=== PATIENT | female | born 1975 | race Caucasian/White ===

== ENCOUNTER 2024-01-09 08:17 | Outpatient (AMB) | payer OTHER, SELFPAY ==
--- NOTE | 2024-01-09 08:27 | A.OFFPC_ITS ---
Vital Signs 01/09/24 08:35 Height 5 ft 5.35 in Weight 126 lb 4 oz BMI 20.8 BP 120/75 Blood Pressure Location Rt brachial Position Sitting Respiration 14 Pulse 72 Pulse Source Pulse Oximeter Temp 98.1 F Temp Source Temporal Artery Scan Pulse Oximetry (%) 100 Oxygen Delivery Method Room Air Intake Visit Reasons: Brand Marketing Manager, thyroid issues Intake Note: New patient visit. Spot on left ring finger. Order Administrator Required: No Allergies amoxicillin [From Augmentin] Allergy (Severe, Verified 01/09/24 08:29) Vomiting clavulanic acid [From Augmentin] Allergy (Severe, Verified 01/09/24 08:29) Vomiting gluten Allergy (Severe, Verified 01/09/24 08:30) severe stomach pain Medication List - Last Reconciled 01/09/24 by Natasha Yoon MD azelastine intranasal cetirizine-pseudoephedrine 5-120 mg ER (Zyrtec-D) 1 tab PO Q12H clobetasol 0.05% 1 appl topical DAILY estradiol 1 patch transdermal 2XW levothyroxine 75 mcg PO DAILY progesterone micronized 100 mg PO BEDTIME zolmitriptan 2.5 mg PO BID Tobacco use date assessed: 01/09/24 Dental Screening Dental Screen Date: 01/09/24 Did you have a dental visit in the last 12 months?: Yes Did you have a dental problem in the last 6 months where you did not have access to dental care?: No Was dental information given to patient?: Patient has dentist HPI HPI Comments History of Present Illness Details This is a 48 year old female with a past medical history of hip pain, OA, hypothyroid, migraine, allergies, h/o lyme disease presenting to [facility]. MSK: Low back pain, b/l hip pain. Muscle tightness, cramping. Has had autoimmune, rheumatologic labs. Normal inflammatory markers. CRYSTAL (+) low titers. Testing for SLE negative. Gluten intolerance. Was no to low gluten prior to colonoscopy. Follows with Dr Whalen. Endocrine: On levothyroxine 75mcg daily Neurology: On zomig prn. TD: 2021 Mammo 06/2023 PFSH Family History (Updated 01/09/24 @ 09:25 by Marcela Rushing CMA) Mother HTN (hypertension) Hypercholesteremia Cardiovascular disease Father HTN (hypertension) Hypercholesteremia Cardiovascular disease Maternal Grandmother HTN (hypertension) Hypercholesteremia Cardiovascular disease Paternal Grandmother HTN (hypertension) Hypercholesteremia Cardiovascular disease Paternal Grandfather HTN (hypertension) Hypercholesteremia Cardiovascular disease Breast cancer Maternal Grandfather Hypercholesteremia Social History Housing: House Patient Tobacco Use Status: Never used Tobacco Tobacco use type: Cigarette e-Cigarette/Vaping Use: Never Used Second Hand Smoke Exposure: No service: No Current occupational status: employed 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 1. Little interest or pleasure in doing things: not at all 2. Feeling down, depressed, or hopeless: not at all 3. Trouble falling or staying asleep, or sleeping too much: more than half the days 4. Feeling tired or having little energy: several days 5. Poor appetite or overeating: not at all 6. Feeling bad about yourself - or that you are a failure or have let yourself or your family down: not at all 7. Trouble concentrating on things, such as reading the newspaper or watching television: not at all 8. Moving or speaking so slowly that other people could have noticed. Or the opposite - being so fidgety or restless that you have been moving around a lot more than usual: not at all 9. Thoughts that you would be better off or of hurting yourself in some way: not at all Total score: 3 Depression Screening Interpretation: Positive Depression Screening Follow-up: Existing condition Depression Screening Done: Yes 27180 - PHQ-9 Billing: Yes Source: Developed by Drs. Brian Esquivel, Moraima Gardner, Stephan Caraballo and colleagues, with an educational dacia from [employer] ([employer]). Thrive Questionnaire Date Thrive assessed: 01/09/24 I am a: Patient What is your living situation today?: I have a steady place to live Within the past 12 months, did the food you bought not last and you didn't have the money to get more?: Never true Within the past 12 months, did you worry whether your food would run out before you got money to buy more?: Never true Do you have trouble paying for medicines?: No Do you have trouble getting transportation to medical appointments?: No Do you have trouble paying your heating and electricity bill?: No Do you have trouble taking care of your child, family member or friend?: No Do you have trouble with day-to-day activities such as bathing, preparing meals, shopping, managing finances, etc.?: No Are you currently unemployed and looking for a job?: No Are you interested in more education?: No Please select the resources that you would like help with: None Currently or been in a relationship where the following occur: no concerns reported THRIVE Score: 0 AUDIT C Alcohol Use Questionnaire (AUDIT-C) 1. How often do you have a drink containing alcohol?: 2-3 times a week 2. How many drinks containing alcohol do you have on a typical day when you are drinking?: 1 or 2 3. How often do you have six or more drinks on one occasion?: Never Total Score: 3 JOSHUA-7 AMB Questionnaire JOSHUA-7 Date JOSHUA - 7 assessed: 01/09/24 Feeling nervous, anxious, or on edge: 0 = Not at all Not being able to stop or control worryin = Not at all Worrying too much about different things: 0 = Not at all Trouble relaxin = Not at all Being so restless that it is hard to sit still: 0 = Not at all Becoming easily annoyed or irritable: 0 = Not at all Feeling afraid as if something awful might happen: 0 = Not at all Total JOSHUA-7 score (0-4 normal; 5-9 mild; 10-14 moderate; 15-21 severe): 0 Source: Developed by Drs. Brian Esquivel, Moraima Gardner, Stephan Caraballo and colleagues, with an educational dacia from [employer] ([employer]). JOSHUA-7 Assessment Billing JOSHUA-7 Assessment Tool: JOSHUA-7 Assessment 76089 Review of Systems Const Details: see HPI Physical exam (Primary Care) Vital Signs: Last Vital Signs Temp 98.1 F 01/09/24 08:35 Pulse 72 01/09/24 08:35 Resp 14 01/09/24 08:35 BP 120/75 01/09/24 08:35 Pulse Ox 100 01/09/24 08:35 Oxygen Delivery Method Room Air 01/09/24 08:35 BMI result Body Mass Index 20.8 Tobacco/Smoking Status: Tobacco use Status Tobacco use date assessed 01/09/24 01/09/24 08:38 Patient Tobacco Use Status Never used Tobacco 01/09/24 08:38 Tobacco use type Cigarette 01/09/24 08:38 e-Cigarette/Vaping Use Never Used 01/09/24 08:38 PHQ-9: PHQ-9 Score PHQ-9: Total score 3 01/09/24 09:26 Depression Screening Interpretation: Positive Depression Screening Follow-up: Existing condition Thrive Assessment: Date of Thrive Assessment Date Thrive assessed 01/09/24 01/09/24 09:26 Currently or been in a relationship where the following occur: no concerns reported Const Other: PHYSICAL EXAM: GENERAL: Alert and oriented x 3. NAD EYES: EOMI. Anicteric. HENT: Moist mucous membranes. No scleral icterus. No cervical lymphadenopathy. LUNGS: Clear to auscultation bilaterally. CARDIOVASCULAR: Regular rate and rhythm. ABDOMEN: Soft, non-tender +bs EXTREMITIES: No edema. Non-tender. SKIN: No rashes or lesions. Warm. NEUROLOGIC: No focal neurological deficits. PSYCHIATRIC: Cooperative. Appropriate mood and affect Assessment and Plan Assessment & Plan (1) Polyarthralgia: Code(s): M25.50 - Pain in unspecified joint Plan: Check MCTD. Check CK and lactic acid. Consider fibromyalgia, neuropathic treatment ie cymbalta (2) Polymyositis: Code(s): M33.20 - Polymyositis, organ involvement unspecified (3) Polyarthralgia: Code(s): M25.50 - Pain in unspecified joint (4) Gluten intolerance: Code(s): K90.41 - Non-celiac gluten sensitivity (5) Migraine: Code(s): G43.909 - Migraine, unspecified, not intractable, without status migrainosus Qualifiers: Migraine type: migraine (< 15 days per month) without aura Status migrainosus presence: without status migrainosus Intractability: not intractable Qualified Code(s): G43.009 - Migraine without aura, not intractable, without status migrainosus Orders: Orders Lactic Acid Today M25.50 - Pain in unspecified joint, M33.20 - Polymyositis, organ involvement unspecified Other Ref Test - Misc Today M25.50 - Pain in unspecified joint, M33.20 - Polymyositis, organ involvement unspecified Creatine Kinase Total Today M25.50 - Pain in unspecified joint, M33.20 - Polymyositis, organ involvement unspecified Coding Level of Care Code Tele New Pt Level 5 (32069) Complex EM visit Add On G2211 Diagnoses Polyarthralgia M25.50 Polymyositis M33.20 Gluten intolerance K90.41 Migraine without aura and without status migrainosus, not intractable G43.009 Migraine type: migraine (< 15 days per month) without aura Status migrainosus presence: without status migrainosus Intractability: not intractable Additional Codes JOSHUA-7 Assessment Billing - JOSHUA-7 Assessment Tool: JOSHUA-7 Assessment 93652 ([id number])
[2024-01-09 08:35] VITALS: BP 120/75; PULSE 72; RESP 14; TEMP 36.7; O2SAT 100; BMI 20.8
== END 2024-01-09 09:29 | disposition home or self-care (01) ==
PROVIDERS: PCP Internal Medicine; Visit Provider Internal Medicine
DX: M25.50 Pain in unspecified joint (principal); M33.20 Polymyositis, organ involvement unspecified; K90.41 Non-celiac gluten sensitivity; G43.009 Migraine without aura, not intractable, without status migrainosus
CPT/HCPCS: 99204; G2211

== ENCOUNTER 2024-01-09 09:29 | Outpatient (REF) | payer OTHER, SELFPAY | END 2024-01-09 09:30 | disposition home or self-care (01) | LOC: HO.WFDLDS 09:29 | PROVIDERS: Visit Provider Internal Medicine | DX: Z13.89 Encounter for screening for other disorder (principal) ==

== ENCOUNTER 2024-02-16 10:59 | Outpatient (AMB) | payer OTHER, SELFPAY ==
--- NOTE | 2024-02-16 11:14 | A.OFFPC_ITS ---
Vital Signs 02/16/24 11:17 Height 5 ft 3.35 in Weight 127 lb BMI 22.2 BP 104/70 Blood Pressure Location Rt brachial Position Sitting Pulse 62 Pulse Source Pulse Oximeter Pulse Oximetry (%) 99 Oxygen Delivery Method Room Air Intake Visit Reasons: mouth patch Intake Note: Patch on gums. Looking for a referral. Allergies amoxicillin [From Augmentin] Allergy (Severe, Verified 02/16/24 11:17) Vomiting clavulanic acid [From Augmentin] Allergy (Severe, Verified 02/16/24 11:17) Vomiting gluten Allergy (Severe, Verified 02/16/24 11:17) severe stomach pain Tobacco use date assessed: 01/09/24 Dental Screening Dental Screen Date: 01/09/24 HPI HPI Comments History of Present Illness Details This is a 48 year old female with a past medical history of hip pain, OA, hypothyroid, migraine, allergies, h/o lyme disease presenting for follow up Seen recently by her dentist. Dentist told her that a plaque like lesion medial to upper left molar had increased in size and referred her to oral surgery. Her insurance does not cover this and she wants to know what she should do. MSK: Low back pain, b/l hip pain. Muscle tightness, cramping. Has had autoimmune, rheumatologic labs. Normal inflammatory markers. CRYSTAL (+) low titers. Testing for SLE negative. Gluten intolerance. Was no to low gluten prior to colonoscopy. Follows with Dr Whalen. Endocrine: On levothyroxine 75mcg daily Neurology: On zomig prn. TD: 2021 Mammo 06/2023 ROS see HPI PHYSICAL EXAM: GENERAL: Alert and oriented x 3. NAD EYES: EOMI. Anicteric. HENT: There is a 2-3mm white plaque medial upper left molar. there are similar but less pronounced changes along the medial upper back teeth bilaterally. there is slight whitish coating of the tongue LUNGS: Clear to auscultation bilaterally. CARDIOVASCULAR: Regular rate and rhythm. No murmur. No JVD. ABDOMEN: Soft, non-tender +bs EXTREMITIES: No edema. Non-tender. SKIN: No rashes or lesions. Warm. NEUROLOGIC: No focal neurological deficits. CN II-XII grossly intact PSYCHIATRIC: Cooperative. Appropriate mood and affect [facility] Family History (Updated 01/09/24 @ 09:25 by Marcela Rushing CMA) Mother HTN (hypertension) Hypercholesteremia Cardiovascular disease Father HTN (hypertension) Hypercholesteremia Cardiovascular disease Maternal Grandmother HTN (hypertension) Hypercholesteremia Cardiovascular disease Paternal Grandmother HTN (hypertension) Hypercholesteremia Cardiovascular disease Paternal Grandfather HTN (hypertension) Hypercholesteremia Cardiovascular disease Breast cancer Maternal Grandfather Hypercholesteremia Social History Housing: House Patient Tobacco Use Status: Never used Tobacco Tobacco use type: Cigarette e-Cigarette/Vaping Use: Never Used Second Hand Smoke Exposure: No service: No Current occupational status: employed 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 Brian Esquivel, Moraima Gardner, Stephan Caraballo and colleagues, with an educational dacia from [employer]. Physical exam (Primary Care) Vital Signs: Last Vital Signs Pulse 62 02/16/24 11:17 BP 104/70 02/16/24 11:17 Pulse Ox 99 02/16/24 11:17 Oxygen Delivery Method Room Air 02/16/24 11:17 BMI result Body Mass Index 22.2 Tobacco/Smoking Status: Tobacco use Status Tobacco use date assessed 01/09/24 02/16/24 11:15 Patient Tobacco Use Status Never used Tobacco 02/16/24 11:15 Tobacco use type Cigarette 02/16/24 11:15 e-Cigarette/Vaping Use Never Used 02/16/24 11:15 Thrive Assessment: Date of Thrive Assessment Date Thrive assessed 01/09/24 02/16/24 11:15 Assessment and Plan Assessment & Plan (1) Oral lesion: Comment: The lesion does not appear suspicious that said the only way to know would be to biopsy. Given the changes on the tongue this may be fungal. She will trial an oral course of antifungal. If no or not complete resolution she could have her managing director atlas evaluate prior to thinking about oral consult. Code(s): K13.70 - Unspecified lesions of oral mucosa (2) Polymyositis: Code(s): M33.20 - Polymyositis, organ involvement unspecified (3) Polyarthralgia: Code(s): M25.50 - Pain in unspecified joint Medications: New fluconazole 150 mg PO DAILY 7 tabs 0RF 7 days Coding Level of Care Code Est Pt Level 4 (81070) Diagnoses Oral lesion K13.70 Polymyositis M33.20 Polyarthralgia M25.50
[2024-02-16 11:17] VITALS: BP 104/70; PULSE 62; O2SAT 99; BMI 22.2
== END 2024-02-16 11:55 | disposition home or self-care (01) ==
PROVIDERS: PCP Internal Medicine; Visit Provider Internal Medicine
DX: K13.70 Unspecified lesions of oral mucosa (principal); M33.20 Polymyositis, organ involvement unspecified; M25.50 Pain in unspecified joint
CPT/HCPCS: 99214

== ENCOUNTER 2024-09-23 10:40 | Outpatient (AMB) | payer OTHER, SELFPAY ==
--- NOTE | 2024-09-23 10:50 | MHC.PC.OV ---
Vital Signs 09/23/24 10:57 Height 5 ft 3.35 in Weight 130 lb BMI 22.8 BP 98/70 Blood Pressure Location Lt brachial Position Sitting Pulse 84 Pulse Source Pulse Oximeter Pulse Oximetry (%) 94 Oxygen Delivery Method Room Air Intake Visit Reasons: PE Intake Note: Physical. Needs refill on levothyroxine, clobetasol, zolmintriptan, azelpstine. Requesting lab work for thyroid. Endocrinology is going to discharge since thyroid is stable. Automation Clerk Required: No Allergies clavulanic acid [From Augmentin] Allergy (Severe, Verified 09/23/24 10:50) Vomiting gluten Allergy (Severe, Verified 09/23/24 10:50) severe stomach pain Tobacco use date assessed: 01/09/24 Dental Screening Dental Screen Date: 01/09/24 HPI HPI Comments History of Present Illness Details This is a 49 year old female with a past medical history of hip pain, OA, hypothyroid, migraine, allergies, h/o lyme disease presenting for physical exam Recent dental work-on amoxicillin. plaque like lesion medial to upper left molar was biopsied and benign MSK: Low back pain, b/l hip pain. Muscle tightness, cramping. Has had autoimmune, rheumatologic labs. Normal inflammatory markers. CRYSTAL (+) low titers. Testing for SLE negative. Gluten intolerance. Was no to low gluten prior to colonoscopy. Follows with Dr Whalen. Endocrine: On levothyroxine 75mcg daily. She was following with endocrinology but now transferring to pcp Neurology: On zomig prn. TD: 2021 Mammo 08/2024 Colonoscopy 2023 ROS see HPI PHYSICAL EXAM: GENERAL: Alert and oriented x 3. NAD EYES: EOMI. Anicteric. HENT: Moint mucouse membranes. Canals clear LUNGS: Clear to auscultation bilaterally. CARDIOVASCULAR: Regular rate and rhythm. No murmur. No JVD. ABDOMEN: Soft, non-tender +bs EXTREMITIES: No edema. Non-tender. SKIN: No rashes or lesions. Warm. NEUROLOGIC: No focal neurological deficits. CN II-XII grossly intact PSYCHIATRIC: Cooperative. Appropriate mood and affect [facility] Family History (Updated 01/09/24 @ 09:25 by Marcela Rushing CMA) Mother HTN (hypertension) Hypercholesteremia Cardiovascular disease Father HTN (hypertension) Hypercholesteremia Cardiovascular disease Maternal Grandmother HTN (hypertension) Hypercholesteremia Cardiovascular disease Paternal Grandmother HTN (hypertension) Hypercholesteremia Cardiovascular disease Paternal Grandfather HTN (hypertension) Hypercholesteremia Cardiovascular disease Breast cancer Maternal Grandfather Hypercholesteremia Social History (Updated 09/23/24 @ 10:58 by Marcela Rushing [facility]) Housing: House Alcohol intake: current Patient Tobacco Use Status: Never used Tobacco Tobacco use type: Cigarette e-Cigarette/Vaping Use: Never Used Second Hand Smoke Exposure: No service: No Current occupational status: employed Current occupation: Realistate collections attorney Current occupational exposures/hazards: No Cognitive needs: No Hearing needs: No Vision needs: No Questionnaire PHQ-9 Over the last 2 weeks, how often have you been bothered by any of the following problems? 1. Little interest or pleasure in doing things: not at all 2. Feeling down, depressed, or hopeless: not at all 3. Trouble falling or staying asleep, or sleeping too much: not at all 4. Feeling tired or having little energy: not at all 5. Poor appetite or overeating: not at all 6. Feeling bad about yourself - or that you are a failure or have let yourself or your family down: not at all 7. Trouble concentrating on things, such as reading the newspaper or watching television: not at all 8. Moving or speaking so slowly that other people could have noticed. Or the opposite - being so fidgety or restless that you have been moving around a lot more than usual: not at all 9. Thoughts that you would be better off or of hurting yourself in some way: not at all Total score: 0 Depression Screening Interpretation: Negative Depression Screening Done: Yes 21171 - PHQ-9 Billing: Yes Source: Developed by Drs. Brian Esquivel, Moraima Gardner, Stephan Caraballo and colleagues, with an educational dacia from [email or web address]. Thrive Questionnaire Date Thrive assessed: 09/23/24 I am a: Patient What is your living situation today?: I have a steady place to live Within the past 12 months, did the food you bought not last and you didn't have the money to get more?: Never true Within the past 12 months, did you worry whether your food would run out before you got money to buy more?: Never true Do you have trouble paying for medicines?: No Do you have trouble getting transportation to medical appointments?: No Do you have trouble paying your heating and electricity bill?: No Do you have trouble taking care of your child, family member or friend?: No Do you have trouble with day-to-day activities such as bathing, preparing meals, shopping, managing finances, etc.?: No Are you currently unemployed and looking for a job?: No Are you interested in more education?: No Please select the resources that you would like help with: None Currently or been in a relationship where the following occur: No concerns reported THRIVE Score: 0 AUDIT C Alcohol Use Questionnaire (AUDIT-C) 1. How often do you have a drink containing alcohol?: 2-3 times a week 2. How many drinks containing alcohol do you have on a typical day when you are drinking?: 3 or 4 3. How often do you have six or more drinks on one occasion?: Never Total Score: 4 JOSHUA-7 AMB Questionnaire JOSHUA-7 Date JOSHUA - 7 assessed: 09/23/24 Feeling nervous, anxious, or on edge: 0 = Not at all Not being able to stop or control worryin = Not at all Worrying too much about different things: 0 = Not at all Trouble relaxin = Not at all Being so restless that it is hard to sit still: 0 = Not at all Becoming easily annoyed or irritable: 0 = Not at all Feeling afraid as if something awful might happen: 0 = Not at all Total JOSHUA-7 score (0-4 normal; 5-9 mild; 10-14 moderate; 15-21 severe): 0 Source: Developed by Drs. Brian Esquivel, Moraima Gardner, Stephan Caraballo and colleagues, with an educational dacia from [email or web address]. JOSHUA-7 Assessment Billing JOSHUA-7 Assessment Tool: JOSHUA-7 Assessment 64945 Physical exam (Primary Care) Vital Signs: Last Vital Signs Pulse 84 09/23/24 10:57 BP 98/70 09/23/24 10:57 Pulse Ox 94 09/23/24 10:57 Oxygen Delivery Method Room Air 09/23/24 10:57 BMI result Body Mass Index 22.8 Tobacco/Smoking Status: Tobacco use Status Tobacco use date assessed 01/09/24 09/23/24 10:51 Patient Tobacco Use Status Never used Tobacco 09/23/24 10:58 Tobacco use type Cigarette 09/23/24 10:58 e-Cigarette/Vaping Use Never Used 09/23/24 10:58 PHQ-9: PHQ-9 Score PHQ-9: Total score 0 09/23/24 10:58 Depression Screening Interpretation: Negative Thrive Assessment: Date of Thrive Assessment Date Thrive assessed 09/23/24 09/23/24 11:00 Currently or been in a relationship where the following occur: No concerns reported Coding Level of Care Code Est Pt Prev Care 40-64y(95772) Diagnoses Physical exam Z00.00 Labral tear of hip, degenerative M24.159 Additional Codes JOSHUA-7 Assessment Billing - JOSHUA-7 Assessment Tool: JOSHUA-7 Assessment 89698 ([id number]) PHQ-9 - 94269 - PHQ-9 Billing: Yes ([id number]) Assessment & Plan Assessment & Plan (1) Physical exam: Code(s): Z00.00 - Encounter for general adult medical examination without abnormal findings Plan: Preventive measures discussed-UTD (2) Labral tear of hip, degenerative: Code(s): M24.159 - Other articular cartilage disorders, unspecified hip Category: Medical Plan: Referral to ortho. Acupressure recommended Orders: Orders TSH reflex Free T4 Today G43.009 - Migraine without aura, not intractable, without status migrainosus, Z13.0 - Encounter for screening for diseases of the blood and blood-forming organs and certain disorders involving the immune mechanism, Z13.220 - Encounter for screening for lipoid disorders Complete Blood Count Auto Diff Today G43.009 - Migraine without aura, not intractable, without status migrainosus, Z13.0 - Encounter for screening for diseases of the blood and blood-forming organs and certain disorders involving the immune mechanism, Z13.220 - Encounter for screening for lipoid disorders Lipid Panel Today G43.009 - Migraine without aura, not intractable, without status migrainosus, Z13.0 - Encounter for screening for diseases of the blood and blood-forming organs and certain disorders involving the immune mechanism, Z13.220 - Encounter for screening for lipoid disorders Comprehensive Met. Panel Today G43.009 - Migraine without aura, not intractable, without status migrainosus, Z13.0 - Encounter for screening for diseases of the blood and blood-forming organs and certain disorders involving the immune mechanism, Z13.220 - Encounter for screening for lipoid disorders Referrals Orthopedics Referral M24.159 - Other articular cartilage disorders, unspecified hip Medications: New prednisone 40 mg (2 x 20 mg) PO DAILY 10 tabs 0RF 5 days zolmitriptan 2.5 mg PO BID 90 tabs 3RF
[2024-09-23 10:57] VITALS: BP 98/70; PULSE 84; O2SAT 94; BMI 22.8
--- OUTSIDE RECORDS SUMMARY | 2024-09-23 15:25 | XMS_ITS | Referral Summary ---
Author Organization [facility] Address [address] [place] [address] Care Team Providers Care Portrait Painter Name Role Phone Halima Chamberlain Primary Care Provider [phone] Allergies Active Allergy Reactions Criticality Noted Date Comments Amoxicillin-Pot Clavulanate Vomiting Medium 12/30/19 17 Medications levothyroxine (SYNTHROID, LEVOTHROID) 25 mcg tablet Levothroid 25 MCG TABS Refills: 0 Active Active Active Problems Problem Noted Date Diagnosed Date Achilles tendinitis of left lower extremity 06/29 Left ankle pain 07/20/2015 Social History Tobacco Use Types Packs/Day Years Used Date Smoking Tobacco: Never Smokeless Tobacco: Never Comments:: Comments Unknown Sex and Gender Information Value Date Recorded Sex Assigned at Not on file Legal Sex Female 6:57 PM EDT Gender Identity Not on file Sexual Orientation Not on file Last Filed Vital Signs Vital Sign Reading Time Taken Comments Blood Pressure 130/77 07/21/2015 1:16 PM EST Pulse 79 07/21/2015 1:16 PM EST Temperature 37.2 ??C (99 ??F) 07/21/2015 1:16 PM EST Respiratory Rate - - Oxygen Saturation - - Inhaled Oxygen Concentration - - Weight 54 kg (119 lb) 07/21/2015 1:16 PM EST Height 167.6 cm (5' 6 ) 07/21/2015 1:16 PM EST Body Mass Index 19.21 07/21/2015 1:16 PM EST Plan of Treatment Not on file Insurance [employer] PPO/EPO/IND Care Teams Portrait Painter Relationship Specialty Start Date End Date Halima Chamberlain [address] [place] [address] PCP - General 03/16/17
--- OUTSIDE RECORDS SUMMARY | 2024-09-23 15:25 | XMS_ITS | Clinical Summary ---
Author Organization [facility] Address [address] [place] [address] Care Team Providers Care Chief Solution Architect Name Role Phone Halima Chamberlain Primary Care Provider [phone] Allergies Active Allergy Reactions Criticality Noted Date [...] 07/21/2015 1:16 PM EST Plan of Treatment Health Maintenance Due Date Last Done Comments Cervical Cancer Screening 1973 Cologuard 1973 Colon Cancer Screening 1973 Colonoscopy 1973 FOBT / Fit Test 1973 HIV Screening 1973 HPV and Pap Smear 1973 Pap Smear 1973 Sigmoidoscopy 1973 Hepatitis B Vaccines (1 of 3 - 19+ 3-dose series) 02/05/1992 Mammogram 2013 Zoster Vaccines (1 of 2) 2023 DTaP,Tdap,and Td Vaccines (2 - Td or Tdap) 02/27/2023 02/27/2013, 07/20/2004 COVID-19 Vaccine (2 - 2023- season) 2024 12/19/2020 Influenza Vaccine (#1) 2024 8, 05/26/2017, 05/27/2016, Additional history exists Alcohol/Substance Use Screening 08/28/2024 RSV Vaccine (60+ years old and patients) (1 - 1-dose 75+ series) 02/05/2048 Pneumococcal Vaccine: Pediatric (0-5 Years) and At-Risk Patients (6-64 Years) Aged Out No longer eligible based on patient's age to complete this topic Insurance [address] [id number] [employer] PPO/EPO/IND Care Teams Chief Solution Architect Relationship Specialty Start Date End Date Halima Chamberlain [address] [place] [address] PCP - General 03/16/17
== END 2024-09-23 11:40 | disposition home or self-care (01) ==
PROVIDERS: PCP Internal Medicine; Visit Provider Internal Medicine
DX: Z00.00 Encounter for general adult medical examination without abnormal findings (principal); M24.159 Other articular cartilage disorders, unspecified hip

== ENCOUNTER → 2024-09-23 10:40 | Outpatient (BNVA) | payer OTHER, SELFPAY | PROVIDERS: PCP Internal Medicine; Visit Provider Internal Medicine ==

== ENCOUNTER 2024-09-23 11:33 | Outpatient (REF) | payer OTHER, SELFPAY ==
[2024-09-23 14:22] LABS: MANUAL DIFF FLAG NO
[2024-09-23 14:34] LABS: Basophils Percent Auto 0.5 % (0-2); Eosinophils Absolute Auto 0.1 X10*3/uL (0.0-0.4); Eosinophils Percent Auto 2.7 % (0-4); Hemoglobin 14.3 g/dl (12.0-16.0); Imm Gran Abs Auto 0.01 X10*3/uL (0.00-0.03); Imm Gran Pct Auto 0.2 % (0.0-0.4); Lymphocytes Absolute Auto 1.4 X10*3/uL (1.2-4.9); Lymphocytes Percent Auto 35.1 % (20-40); Mean Corpuscular HGB Conc 34.9 g/dl (31.0-35.0); Mean Corpuscular Hemoglobin 31.6 pg (27.0-33.0); Mean Corpuscular Volume 90.5 fL (80.0-98.0); Mean Platelet Volume 11.5 fL (9.4-12.3); Monocytes Absolute Auto 0.4 X10*3/uL (0.1-1.2); Monocytes Percent Auto 10.8 % (2-11); Neutrophils Absolute Auto 2.1 x10*3/uL (2.0-8.3); Neutrophils Percent Auto 50.7 % (45-73); Platelet Count 181 X10*3/uL (160-400); Red Blood Count 4.53 X10*6/uL (4.20-5.50); Red Cell Distribution Width 11.9 % (11.0-16.0); White Blood Count 4.1 X10*3/uL (4.8-10.8)
[2024-09-23 15:15] LABS: Alanine Aminotransferase 38 U/L (0-31); Albumin Level 4.6 g/dL (3.5-5.0); Anion Gap 13 (12-20); Aspartate Amino Transferase 38 U/L (5-31); Bilirubin Total 0.5 mg/dL (0.0-1.0); Blood Urea Nitrogen 20 mg/dL (9-16); Calcium 9.4 mg/dL (8.4-10.2); Carbon Dioxide 27 mmol/L (22-29); Chloride 104 mmol/L (96-108); Cholesterol 193 mg/dL (<200); Estimated Glomerular Filt Rate > 60; Glucose Random 95 mg/dL (60-115); HDL Cholesterol 56 mg/dL (>40); LDL Cholesterol Calculated 123 mg/dL (<100); Potassium 4.3 mmol/L (3.3-5.1); Sodium 140 mmol/L (135-145); Total Protein 7.6 g/dL (6.5-8.0); Triglycerides 74 mg/dL (<150)
[2024-09-23 15:27] LABS: TSH reflex Free T4 1.18 uIU/mL (0.32-4.0)
[2024-09-23 15:45] LABS: Alkaline Phosphatase 64 U/L (39-117)
--- OUTSIDE RECORDS SUMMARY | 2024-09-23 16:28 | XMS_ITS | Clinical Summary ---
Author Organization [facility] Address [address] [place] [address] Care Team Providers Care Stereotype Finisher Name Role Phone Halima Chamberlain Primary Care Provider [phone] Allergies Active Allergy Reactions Criticality Noted Date [...] this topic Insurance [address] [id number] [employer] PPO/EPO/IND Care Teams Stereotype Finisher Relationship Specialty Start Date End Date Halima Chamberlain [address] [place] [address] PCP - General 03/16/17
== END 2024-09-23 11:34 | disposition home or self-care (01) ==
LOC: HO.WFDLDS 11:33
PROVIDERS: Visit Provider Internal Medicine
DX: Z00.00 Encounter for general adult medical examination without abnormal findings (principal); M24.159 Other articular cartilage disorders, unspecified hip; E03.9 Hypothyroidism, unspecified; G43.009 Migraine without aura, not intractable, without status migrainosus; Z79.899 Other long term (current) drug therapy; Z13.0 Encounter for screening for diseases of the blood and blood-forming organs and certain disorders involving the immune mechanism; Z13.220 Encounter for screening for lipoid disorders; M33.20 Polymyositis, organ involvement unspecified; M25.50 Pain in unspecified joint
CPT/HCPCS: 36415; 80053; 80061; 82550; 84443; 85025; 96127